=== PATIENT | male | born 1960 | race African-American/Black ===

== ENCOUNTER 2017-03-04 09:16 | Outpatient (CLI) | payer MEDICARE, MEDICAID ==
[~2017-03-04 09:16] MED LIST: AMLO10TA2 PO; ASPI-605 PO; HYDR25TA4 PO; METO25TA6 PO; [UNRECOGNIZED DRUG - OTHER]
== END 2017-03-04 23:59 | disposition home or self-care (01) ==
LOC: RAD 09:16
PROVIDERS: ATTEND Family Medicine
DX: J98.09 Other diseases of bronchus, not elsewhere classified (principal); I25.10 Atherosclerotic heart disease of native coronary artery without angina pectoris; I70.0 Atherosclerosis of aorta; M47.894 Other spondylosis, thoracic region
CPT/HCPCS: 71250-TC

== ENCOUNTER 2017-09-25 10:09 | Emergency (ER) | payer MEDICARE, MEDICAID ==
[~2017-09-25] VITALS: Ht 180.3 cm; Wt 86.2 kg
[2017-09-25 10:23] VITALS: BP 172/122
== END 2017-09-25 11:00 | disposition home or self-care (01) ==
LOC: ER 10:11
DX: I10 Essential (primary) hypertension (principal); I25.2 Old myocardial infarction; Z88.5 Allergy status to narcotic agent; Z60.2 Problems related to living alone; Z79.82 Long term (current) use of aspirin; Z95.818 Presence of other cardiac implants and grafts
CPT/HCPCS: 99283; A4606; Z7610

== ENCOUNTER 2018-09-08 07:39 | Inpatient (IN) | payer MEDICARE, MEDICAID ==
[~2018-09-08] VITALS: Ht 180.3 cm; Wt 86.3 kg
[~2018-09-08 07:39] MED LIST changes: -AMLO10TA2 PO; +AMLO10TA7 PO
[2018-09-08 08:00] VITALS: BP 132/76
[2018-09-08] MEDS ORDERED: TRANEXAMIC ACID 3,000 MG in SODIUM CHLORIDE IRRIG SOLUTION 70 ML IR ONE (09:00)
--- NOTE | 2018-09-08 10:00 | NUR ---
HOPPER ATTENDANT NOTES PT ARRIVED ONTO THE UNIT AT 0800, ACCOMPANIED BY AWASI. PT SCHEDULED FOR RIGHT TOTAL HIP ARTHROPLASTY. ALL CONSENTS SIGNED, CHECKLIST SIGNED, AND ALL PREOP MEDICATIONS ORDERED AND GIVEN. PT HAS A LEFT HAND #20 IV. ALL PT BELONGINGS GIVEN TO . SAFETY PRECAUTIONS IN PLACE, BED IN LOWEST LOCKED POSITION, X2 SIDE RAILS UP AND CALL LIGHT WITHIN REACH. WILL CONTINUE TO MONITOR.
[2018-09-08] MEDS ORDERED: CELECOXIB 100 MG CAPSULE PO ONE (10:30)
[2018-09-08] MEDS ORDERED: oxyCODONE HCL SR 10MG TAB.SR.12H PO ONE (10:30)
[2018-09-08] MEDS ORDERED: ACETAMINOPHEN 325 MG TABLET PO ONE (10:30)
--- NOTE | 2018-09-08 12:20 | NUR ---
RN NOTES PT LEFT FOR OR VIA JOS[facility] AT 1226
[2018-09-08] MEDS ORDERED: KETOROLAC TROMETHAMINE INJ 30 MG/ML VIAL ONE (12:38)
[2018-09-08] MEDS ORDERED: GLYCOPYRROLATE 0.2 MG/ML VIAL ONE ×2 (12:38→12:45)
[2018-09-08] MEDS ORDERED: DEXAMETHASONE SOD PHOSPHATE 4 MG/ML VIAL ONE (12:38)
[2018-09-08] MEDS ORDERED: CEFAZOLIN 1 GM ONE ×2 (12:38→12:45)
[2018-09-08] MEDS ORDERED: ROCURONIUM BROMIDE 50 MG/5 ML ONE (12:39)
[2018-09-08] MEDS ORDERED: HYDROMORPHONE INJ 2 MG/ML DISP.SYRIN ONE (12:39)
[2018-09-08] MEDS ORDERED: BACITRACIN 50000 UNITS/VIAL ONE (12:59)
[2018-09-08] MEDS ORDERED: SODIUM CHLORIDE IRRIG IR ONE (13:00)
[2018-09-08] MEDS ORDERED: TRANEXAMIC ACID IR ONE (13:00)
[2018-09-08] MEDS ORDERED: COLACE 250 MG CAPSULE PO PRN (15:30)
[2018-09-08] MEDS ORDERED: SENOKOT 8.6 MG TABLET PO PRN (15:30)
[2018-09-08] MEDS ORDERED: TYLENOL 650 MG TABLET PO PRN (15:30)
[2018-09-08] MEDS ORDERED: ZOFRAN 4mg/2ML IV PRN (15:30)
[2018-09-08] MEDS ORDERED: HYDROMORPHONE 1 MG/1 ML DISP.SYRIN IV PRN (15:30)
[2018-09-08] MEDS ORDERED: DULCOLAX 10 MG/SUPP.RECT RC PRN (15:30)
[2018-09-08] MEDS ORDERED: HYDROCODONE/APAP 5/325MG 1 EACH TABLET PO PRN (15:30)
[2018-09-08 16:00] VITALS: BP 121/68
[2018-09-08] MEDS ORDERED: ATOR20TA PO (16:12)
[2018-09-08] MEDS ORDERED: CLOP75TA15 PO (16:12)
[2018-09-08] MEDS ORDERED: DRONABINOL (2.5 MG) 2.5 MG CAPSULE PO ONE (16:42)
[2018-09-08] MEDS ORDERED: MORPHINE SULFATE INJ 4 MG/ML DISP.SYRIN IM PRN (17:00)
[2018-09-08] MEDS ORDERED: METOPROLOL TARTRATE 50 MG TABLET PO SCH (17:00)
[2018-09-08] MEDS ORDERED: MAG HYDROX/AL HYDROX/SIMETH 30 ML UDC PO PRN (17:00)
[2018-09-08] MEDS ORDERED: diphenhydrAMINE HCL 25 MG CAPSULE PO PRN (17:00)
[2018-09-08] MEDS ORDERED: MORPHINE SULFATE INJ 4 MG/ML DISP.SYRIN IM/IV PRN (17:30)
--- NOTE | 2018-09-08 17:35 | NUR ---
RN NOTES PT GIVEN 50MG OF METOPROL. PER PATIENT HE TAKES 50MG BID.
[2018-09-08] MEDS: DRONABINOL (2.5 MG) 2.5 MG CAPSULE PO SCH ×2 (17:38→23:27)
[2018-09-08] MEDS: IV LR 1000 ML 1,000 ML IV PRN (17:39)
[2018-09-08] MEDS ORDERED: METO50TA16 PO (17:42)
[2018-09-08] MEDS ORDERED: LOSA100T31 PO (17:42)
[2018-09-08] MEDS ORDERED: HYDR-4077 PO (17:42)
[2018-09-08] MEDS ORDERED: ATOR80TA PO (17:42)
--- NOTE | 2018-09-08 18:10 | NUR ---
RN CLOSING NOTES PT AWAKE AND RESTING IN BED. PT S/P RIGHT TOTAL HIP ARTHROPLASTY TODAY BY DR ROLLE. PT HAS A LEFT HAND #20 INTACT AND RUNNING LR @100ML/HR, PT TOLERATING WELL. PT DIET CHANGED TO CARDIAC PER DR ZAFAR. ALL POST OP ORDERS CARRIED OUT. PER PATIENT NO ALLERGIES TO CODEINE. ABDUCTION PILLOW IN PLACE. SAFETY PRECAUTIONS IN PLACE, BED IN LOWEST LOCKED POSITION, X2 SIDE RAILS UP AND CALL LIGHT WITHIN REACH. ALL NEEDS MET DURING SHIFT. WILL ENDORSE TO TYPING SECRETARY NURSE FOR CONTINUITY OF CARE.
--- NOTE | 2018-09-08 19:30 | NUR ---
RN PM OPENING NOTES BEDSIDE REPORT RECIEVED FROM LINDA EVANGELISTA. PT AWAKE AND RESTING IN BED. DENIES PAIN. POC REVIEWED QUESTIONS CONCERNS ADDRESSED. REVIEWED PAIN MANAGEMENT PLAN WITH PATIENT. DENIES PAIN AT THIS TIME. HAD S/P RIGHT TOTAL HIP ARTHROPLASTY TODAY BY DR ROLLE. PT HAS A LEFT HAND #20 INTACT AND RUNNING LR @100ML/HR, PT TOLERATING PO INTAKE DENIES N/V. PATIENT HAS ABDUCTOR PILLOW IN PLACE. ACT ORDER WBAT. SAFETY PRECAUTIONS IN PLACE, BED IN LOWEST LOCKED POSITION, X2 SIDE RAILS UP AND CALL LIGHT WITHIN REACH. VERBALIZED UNDERSTANDING TO CALL FOR ASSISTANCE NEEDED.
[2018-09-08 20:00] VITALS: BP 120/66
[2018-09-08] MEDS: ANCEF 1 G in IV D5W 50 ML IV SCH (20:48)
[2018-09-08] MEDS: FAMOTIDINE (20 MG) 20 MG TABLET PO SCH (20:48)
[2018-09-08] MEDS ORDERED: AMBIEN 5 MG TABLET PO PRN (22:00)
[2018-09-08] MEDS: oxyCODONE IR immediate release 5 MG PO PRN (22:22)
--- NOTE | 2018-09-09 | NUR ---
PATIENT OOB. PATIENT REPORTS HAVING DIFFICULTY URINATING WHILE LYING IN BED. ACT ORDER WBAT. PATIENT ASSISTED TO STANDING POSITION PER HIS REQUEST AND HE PRECEDED TO URINATE 300. PATIENT ASSISTED BACK IMMOBILIZER REAPPLIED. REPORTS SOME DISCOMFORT TO RIGHT HIP. REVIEWED PAIN MANAGEMENT PLAN WITH PATIENT. PATIENT DOESN'T WANT ANY PAIN MEDICATION AT THIS TIME. VERBALIZED UNDERSTANDING TO CALL FOR ASSISTANCE NEEDED.
[2018-09-09] MEDS: ANCEF 1 G in IV D5W 50 ML IV SCH (04:13)
--- NOTE | 2018-09-09 04:34 | NUR ---
PATIENT HASNT URINATED SINCE MIDNIGHT. OFFERED TO DO BLADDER SCAN AND CALL DOCTOR TO POSSIBLY DO STRAIGHT CATH PATIENT STATES. "i DON'T WANT TO DO THAT. JUST LEAVE ME ALONE. THIS HAPPENED TO ME LAST TIME I HAD SURGERY." PATIENT INFORMED IF HE CHANGED HIS MIND TO LET ME KNOW. WILL CONT TO MONITOR.
[2018-09-09] MEDS: IV LR 1000 ML 1,000 ML IV PRN (05:46)
[2018-09-09 06:43] LABS: BASOPHILS % (AUTO) 0.1 % (0.0-2.0); HEMATOCRIT 31 % (39-51); HEMOGLOBIN 10.5 g/dL (13.5-17.5); LYMPHOCYTES # (AUTO) 1.2 /CMM (0.8-4.8); LYMPHOCYTES % (AUTO) 12.4 % (20.0-44.0); MEAN CORPUSCULAR HGB CONC 34 g/dl (31.0-36.0); MEAN CORPUSCULAR VOLUME 88 fL (80-96); MONOCYTES % (AUTO) 10.5 % (2.0-12.0); NEUTROPHILS # (AUTO) 7.3 /CMM (1.8-8.9); PLATELET COUNT (AUTO) 338 /CMM (150-450); RED BLOOD CELL COUNT(AUTO) 3.54 MIL/uL (4.5-6.0); WHITE BLOOD COUNT (AUTO) 9.4 K/uL (4.3-11.0)
--- NOTE | 2018-09-09 06:43 | NUR ---
DR. JUAREZ CALLED, INFORMED OF PATIENT CONDITION. NEW ORDERS TO ADMINISTER OXYCODONE 15 MG ONE TIME DOSE NOW.
--- NOTE | 2018-09-09 06:50 | NUR ---
PATIENT INFORMED THAT DR. JUAREZ WANTED HIM TO HAVE 15 MG OXYCODONE NOW. PATIENT REFUSED. STATES. "NO I AM NOT REALLY IN TO MUCH PAIN RIGHT NOW AT THIS TIME. I DON'T WANT TO TAKE ANYTHING AT THIS TIME."
--- NOTE | 2018-09-09 06:58 | NUR ---
PM RN CLOSING NOTE. PATIENT IN BED AWAKE. DENIES PAIN AT THIS TIME. IN BED WITH IMMOBILIZER. REVIEWED POC WITH PATIENT.. LR STILL INFUSING TO LEFT HAND WITH NO S/S OF INFILTRATION. PATIENT TOLERATING PO INTAKE. SAFETY MEASURES IN PLACE. WILL ENDORSE TO DAY FOR DENI.
[2018-09-09 07:00] LABS: CALCIUM, SERUM 8.7 mg/dL (8.5-10.1); CREATININE 1.3 mg/dL (0.6-1.3); POTASSIUM 4.3 mmol/L (3.5-5.1)
--- NOTE | 2018-09-09 07:35 | NUR ---
RN OPENING NOTES RECEIVED PATIENT IN BED, AWAKE AND ORIENTED X4. NO PAIN OR ACUTE DISTRESS AT THIS TIME. RESPIRATION EVEN AND UNLABORED. SKIN IS DRY WARM TO TOUCH. PATIENT ABLE TO MAKE NEEDS KNOWN. CONTINUE TO MONITOR PATIENT FOR S/P RIGHT HIP ARTHROPLASTY. NO ADVERSE REACTIONS AT THIS TIME. NOTED WITH IV ACCESS ON LEFT HAND. NO S/S OF INFILTRATION OR INFECTION. FLUSHING WELL. ALL NEEDS ANTICIPATED. KEPT CLEAN AND DRY. CALL LIGHT WITHIN REACHED. PLAN OF CARE DISCUSSED. BED LOCKED AND IN LOWEST POSITION. SAFETY MAINTAINED. WILL CONTINUE PLAN OF CARE.
[2018-09-09 08:00] VITALS: BP 130/78
[2018-09-09] MEDS: oxyCODONE IR immediate release 5 MG PO PRN (08:29)
[2018-09-09] MEDS: hydrALAZINE HCL 50 MG TABLET PO SCH ×2 (08:46→13:43)
[2018-09-09] MEDS: DRONABINOL (2.5 MG) 2.5 MG CAPSULE PO SCH (08:47)
[2018-09-09] MEDS: FAMOTIDINE (20 MG) 20 MG TABLET PO SCH (08:47)
--- NOTE | 2018-09-09 08:49 | NUR ---
RN NOTES MEDICATION HYDRALAZINE, METOPROLOL, HYDROCHLOROTHIAZIDE WAS HELD DUE TO PULSE OR 58. ALSO, THE PATIENT REFUSED MARINOL AND PEPCID. EXPLAINED RISK AND BENEFITS X3. STILL REFUSED. PATIENT REMAINS IN STABLE CONDITION. WILL CONTINUE TO MONITOR CLOSELY.
[2018-09-09] MEDS ORDERED: ASPIRIN EC 81 MG TABLET.DR PO SCH (09:00)
[2018-09-09] MEDS ORDERED: METOPROLOL TARTRATE 50 MG TABLET PO SCH (09:00)
[2018-09-09] MEDS ORDERED: AMLODIPINE BESYLATE 10 MG TABLET PO SCH (09:00)
[2018-09-09] MEDS ORDERED: RIVAROXABAN 10 MG TABLET PO SCH (09:00)
[2018-09-09] MEDS ORDERED: CLOPIDOGREL BISULFATE 75 MG TABLET PO SCH (09:00)
[2018-09-09] MEDS ORDERED: HYDROCHLOROTHIAZIDE 25 MG TABLET PO SCH (09:00)
[2018-09-09 13:43] VITALS: BP 120/65
--- NOTE | 2018-09-09 15:27 | NUR ---
DIRECTOR CPG NOTES TWO FAMILY MEMBERS ARRIVED IN THE UNIT. DISCHARGE PAPERS WAS PRESENTED TO THE PATIENT. EXPLAINED DISCHARGE ORDERS AND PATIENT SIGNED THE NECESSARY DOCUMENTS. DRESSING WAS CHANGED ORDERED ON THE RIGHT HIP. PHOTOS WAS TAKEN WELL AND WAS PLACED IN THE CHART FOR RECORDS. PATIENT WAS ALSO GIVEN A FWW ORDERED FORM THE CENTRAL SUPPLY. PATIENT WAS INSTRUCTED THAT HE WILL HAVE HOME HEALTH PER MICROFILM MACHINE OPERATOR AND TO F/U WITH DR. ROLLE IN 1-2 WEEKS. PATIENT WAS PLACED IN THE WHEELCHAIR AND WAS ACCOMPANIED BY ADMITTED ATTORNEYS TO THEIR TRANSPORTATION. PATIENT LEFT THE UNIT IN STABLE CONDITION.
[2018-09-09] MEDS ORDERED: LOSARTAN POTASSIUM 50 MG TABLET PO SCH (18:00)
[2018-09-09] MEDS ORDERED: ATORVASTATIN 40 MG TABLET PO SCH (22:00)
[2018-09-11] MEDS ORDERED: ASPIRIN EC 81 MG TABLET.DR PO SCH (09:00)
== END 2018-09-09 15:25 | disposition home health service (06) | DRG 470 ==
LOC: DS 07:39 → MED 07:40
PROVIDERS: ADMIT Student in an Organized Health Care Education/Training Program; ATTEND Nurse Practitioner Acute Care
PROC: 0SR90JZ Replacement of Right Hip Joint with Synthetic Substitute, Open Approach (ICD-10-PCS; principal; 2018-09-08)
DX: M16.11 Unilateral primary osteoarthritis, right hip (principal); M87.851 Other osteonecrosis, right femur; E78.5 Hyperlipidemia, unspecified; I25.10 Atherosclerotic heart disease of native coronary artery without angina pectoris; I25.2 Old myocardial infarction; Z96.642 Presence of left artificial hip joint; F17.210 Nicotine dependence, cigarettes, uncomplicated; I10 Essential (primary) hypertension; Z79.82 Long term (current) use of aspirin; F12.90 Cannabis use, unspecified, uncomplicated
CPT/HCPCS: 36415; 80048-TC; 83735-TC; 84100-TC; 85025-TC; 86850-TC; 87081-TC; 88305-TC; 88311-TC; 97110-TC; 97116-TC; 97530-TC; A4217; A6209; A6402; G0378; J0690; J1100; J1170; J1885; J2270; J2405; J2704; J2710; J3490; J7030; J7060; J7120; Q0167

== ENCOUNTER 2018-09-10 09:16 | Emergency (ER) | payer MEDICARE, MEDICAID ==
[~2018-09-10] VITALS: Ht 175.3 cm; Wt 74.8 kg
[~2018-09-10 09:16] MED LIST changes: +ATOR80TA PO; +CLOP75TA15 PO; +HYDR-4077 PO; -HYDR25TA4 PO; +LOSA100T31 PO; -METO25TA6 PO; +METO50TA16 PO
--- NOTE | 2018-09-10 09:30 | NUR ---
Adverse reaction;sweating s/p taking oxycodone. Patient brought in by ambulance from home, patient requesting for SNF placement, he's unable to care for himself at home s/p surgery. Needs attended. Seen by Dr. Johnson.
[2018-09-10] MEDS ORDERED: DRONABINOL (2.5 MG) 2.5 MG CAPSULE PO ONE (10:51)
[2018-09-10] MEDS ORDERED: diphenhydrAMINE HCL 25 MG CAPSULE PO PRN (11:00)
[2018-09-10] MEDS ORDERED: MAG HYDROX/AL HYDROX/SIMETH 30 ML UDC PO PRN (11:00)
[2018-09-10] MEDS ORDERED: ONDANSETRON HCL/PF 4 MG/2 ML VIAL IV PRN (11:00)
[2018-09-10] MEDS ORDERED: FAMOTIDINE (20 MG) 20 MG TABLET PO SCH (11:00)
[2018-09-10] MEDS ORDERED: MORPHINE SULFATE INJ 4 MG/ML DISP.SYRIN IM/IV PRN (11:00)
[2018-09-10] MEDS ORDERED: oxyCODONE IR immediate release 5 MG PO PRN (11:00)
[2018-09-10] MEDS ORDERED: CLONIDINE HCL 0.1 MG TABLET PO PRN (11:00)
[2018-09-10] MEDS ORDERED: DRONABINOL (2.5 MG) 2.5 MG CAPSULE PO SCH ×2 (11:00→20:00)
[2018-09-10] MEDS ORDERED: FAMOTIDINE (20 MG) 20 MG TABLET ONE (11:22)
--- NOTE | 2018-09-10 11:35 | NUR ---
VAMP STITCHER WORKING ON TRANSFER. WAITING FOR PT EVAL. PATIENT REFUSED MARINOL.
--- NOTE | 2018-09-10 12:04 | NUR ---
[facility] TO [facility] ETA 0150 TRIP#[id number]
--- NOTE | 2018-09-10 12:27 | NUR ---
ATTEMPTED TO CALL [facility] MULTIPLE TIMES FOR REPORT, IT HAS A BUSY SIGNAL.
--- NOTE | 2018-09-10 13:03 | NUR ---
PATIENT TRANSFERRED TO [facility], IN STABLE CONDITION. REPORT GIVEN TO TRAVEL ACCOMMODATIONS RATER. DISCHARGE INSTRUCTION PROVIDED AND VERBALIZED UNDERSTANDING.
[2018-09-10 13:05] VITALS: BP 127/76
== END 2018-09-10 13:06 | disposition home or self-care (01) ==
LOC: ER 09:20
DX: M25.551 Pain in right hip (principal); G89.18 Other acute postprocedural pain; I10 Essential (primary) hypertension; I25.2 Old myocardial infarction; Z95.5 Presence of coronary angioplasty implant and graft; Z98.890 Other specified postprocedural states; Z88.5 Allergy status to narcotic agent; Z60.2 Problems related to living alone; Z79.82 Long term (current) use of aspirin; Z96.641 Presence of right artificial hip joint
CPT/HCPCS: 97116-TC; 97530-TC; Q0167